=== PATIENT | female | born 1945 | race Caucasian/White ===

== ENCOUNTER 2023-04-29 06:13 | Day surgery (SDC) | payer MEDICARE ==
[2023-04-26 15:21] LABS: ALBUMIN 3.7 G/DL (3.4-5.0); ALBUMIN/GLOBULIN RATIO 1.2 (1.1-1.5); ALKALINE PHOSPHATASE 58 IU/L (46-116); BLOOD UREA NITROGEN 14 MG/DL (7-18); BUN/CREATININE RATIO 17.1 (10.0-20.0); CALCIUM 8.7 MG/DL (8.5-10.1); CHLORIDE 105 MMOL/L (99-107); CREATININE 0.82 MG/DL (0.40-0.90); PRE OP ALT 22 U/L (30-65); PRE OP ANION GAP 9 (8-16); PRE OP AST 31 U/L (10-37); PRE OP BILIRUB, TOTAL 0.5 MG/DL (0.0-1.0); PRE OP GLUCOSE 91 MG/DL (70-104); PRE OP POTASSIUM 4.1 MMOL/L (3.4-5.1); PRE OP SODIUM 140 MMOL/L (135-145); TOTAL CARBON DIOXIDE 26.5 MMOL/L (24-32); TOTAL PROTEIN 6.7 G/DL (6.4-8.2); eGFR 68 ML/MIN
[~2023-04-29] VITALS: Ht 156.2 cm; Wt 47.6 kg
[2023-04-29] VITALS (18 sets, daily range): BP systolic 86–125; BP diastolic 49–69; PULSE 51–72; RESP 10–16; TEMP 98; O2SAT 90–100
[~2023-04-29 06:13] MED LIST: NO HOME MEDS; cefazolin 2gm/D5W 100mL 100 ML IV ONE; famotidine 20mg tablet PO ONE; ringers solution, lacted 1,000 ML IV SCH
[2023-04-29] MEDS ORDERED: BUPIVAcaine/PF 2.5 mg/ml (0.25%) 30ml vial ONE (06:52)
[2023-04-29] MEDS ORDERED: LIDOcaine 1% 30ml preserv. free vial ONE (06:52)
[2023-04-29 07:07] LABS: BASOPHILS # (AUTO) 0.1 X10'3 (0-0.2); BASOPHILS % (AUTO) 1.1 % (0-1); EOSINOPHILS # (AUTO) 0.2 X10'3 (0-0.9); EOSINOPHILS % (AUTO) 3.3 % (0-6); LYMPHOCYTES # (AUTO) 1.4 X10'3 (1.1-4.8); LYMPHOCYTES % (AUTO) 24.8 % (21-51); MEAN CORPUSCULAR HEMOGLOBIN 29.9 PG (27.0-31.0); MEAN CORPUSCULAR HGB CONC 33.1 g/dL (33.0-36.5); MEAN CORPUSCULAR VOLUME 90.3 FL (78-98); MEAN PLATELET VOLUME 9.1 FL (7.4-10.4); MONOCYTES # (AUTO) 0.4 X10'3 (0-0.9); MONOCYTES % (AUTO) 7.2 % (2-12); NEUTROPHILS # (AUTO) 3.5 X10'3 (1.8-7.7); NEUTROPHILS % (AUTO) 63.6 % (42-75); PRE OP HEMATOCRIT 42.1 % (35.0-45.0); PRE OP HEMOGLOBIN 13.9 g/dL (12.0-16.0); PRE OP PLATELET COUNT 140 X10'3 (140-440); PRE OP WHITE BLOOD COUNT 5.5 10'3 (4.8-10.8); RED BLOOD COUNT 4.66 X10'6 (4.20-5.60); RED CELL DISTRIBUTION WIDTH 14.2 % (11.5-14.5)
[2023-04-29] MEDS ORDERED: ringers solution, lacted 1,000 ML IV SCH (07:50)
[2023-04-29] MEDS ORDERED: ondansetron/PF 4mg/2ml inj IV PRN (07:50)
[2023-04-29] MEDS ORDERED: morphine 2 MG/ML inj. syringe IV PRN (07:50)
[2023-04-29] MEDS ORDERED: proCHLORperazine 10 MG/2 ml inj IV PRN (07:50)
[2023-04-29] MEDS ORDERED: morphine 4 MG/ML inj SYRINge IV PRN (07:50)
[2023-04-29] MEDS ORDERED: meperidine/PF 25mg/ml syringe IV PRN ×3 (07:50)
[2023-04-29] MEDS ORDERED: sevoflurane 250ml liquid IH ONE (08:16)
[2023-04-29] MEDS ORDERED: rocuronium 10mg/ml inj IV ONE (08:18)
[2023-04-29] MEDS ORDERED: fentaNYL/PF 50MCG/1 ML 2ML syringe ONE (08:18)
[2023-04-29] MEDS ORDERED: midazolam 1 mg/ML 2ml injection ONE (08:18)
[2023-04-29] MEDS ORDERED: propofol inj 20 ML IV ONE (08:18)
[2023-04-29] MEDS ORDERED: dexamethasone sod phosphate 4mg/ml inj. ONE (09:23)
[2023-04-29] MEDS ORDERED: ondansetron/PF 4mg/2ml inj ONE (09:23)
[2023-04-29] MEDS ORDERED: sugammadex 200mg/2ml injection IV ONE (09:29)
--- NOTE | 2023-04-29 09:38 | NUR ---
Received from OR via [facility], accompanied by Anesthesiologist and report given by [facility] Anesthesiologist. PATIENT WAKING UP, NO S/S OF PAIN, V/S WNL, SCD ON , PIV 20G RIGHT FOREARM, BANDAID LAPS SITES CLOSED CDI TO ABDOMEN. Addendum: 04/29/23 at 0956 by Will Vilchis RN Amended: Links added.
[2023-04-29] MEDS ORDERED: acetaminophen 325mg tablet PO PRN (09:55)
[2023-04-29] MEDS ORDERED: ringers solution, lacted 1,000 ML IV ONE (11:00)
[2023-04-29] MEDS ORDERED: HYDROcodone/acetaminophen 5mg/325mg tablet PO ONE (11:15)
--- NOTE | 2023-04-29 11:39 | NUR ---
ALL DISCHARGE CRITERIA HAS BEEN MET. VSS, PAIN AT A TOLERABLE LEVEL, ABLE TO SAFELY AMBULATE AND TRANSFER SELF. IV TAKEN OUT WITHOUT ANY COMPLICATIONS. ALL DISCHARGE INSTRUCTIONS COVERED WITH PATIENT AND ALL QUESTIONS ANSWERED. PATIENT TAKEN OUT VIA WHEELCHAIR WITH ALL BELONGINGS TO PERSONAL VEHICLE WHERE FRIEND DROVE PATIENT HOME. Addendum: 04/29/23 at 1141 by Will Vilchis RN Amended: Links added.
== END 2023-04-29 11:38 | disposition home or self-care (01) ==
LOC: PAS 06:13 → EDSEX 10:15 → PAS 11:38
PROVIDERS: ATTEND Surgery
DX: K40.20 Bilateral inguinal hernia, without obstruction or gangrene, not specified as recurrent (principal); E78.5 Hyperlipidemia, unspecified; Z90.2 Acquired absence of lung [part of]; Z98.890 Other specified postprocedural states; Z79.899 Other long term (current) drug therapy; Z72.89 Other problems related to lifestyle; Z91.018 Allergy to other foods; Z91.09 Other allergy status, other than to drugs and biological substances; Z80.0 Family history of malignant neoplasm of digestive organs; Z80.41 Family history of malignant neoplasm of ovary; Z82.49 Family history of ischemic heart disease and other diseases of the circulatory system
CPT/HCPCS: 36415; 49650; 80053; 82948; 85025; 93005; C1781; J0690; J1100; J2175; J2250; J2270; J2405; J2704; J3010; J3490; J7030; J7120; Z7506; Z7508; Z7512; A4215; A4618